=== PATIENT | male | born 1940 | race Caucasian/White ===

== ENCOUNTER 2023-04-12 14:05 | Emergency (ER) | payer MEDICARE, BC ==
[2023-04-12 14:23] VITALS: BP 139/64; O2SAT 100
--- NOTE | 2023-04-12 16:17 | ED Physician Documentation ---
History of Present Illness - Stated complaint Stated Complaint: GI,BACK PX - Chief complaint Chief Complaint: Abd Pain - History obtained from History obtained from: Patient, Family - History of Present Illness Pain level max: 0 Pain level now: 0 - Additonal information Additional information: 82-year-old male states that he suffered a compression fracture earlier this month and has been on oxycodone. He states he has had constipation for the past several days. No abdominal pain, no nausea, no vomiting. No fevers. No chills. Did take a dose of MiraLAX but did not feel that it helped. Patient has no other complaints at this time. Patient states that he has been tapering off his oxycodone to help with the constipation. Review of Systems Constitutional: denies: Fever, Chills GI: denies: Vomiting, Diarrhea, Hematemesis, Bloody / black stool Skin: denies: Rash Musculoskeletal: denies: Neck pain, Back pain PD PAST MEDICAL HISTORY - Past Medical History Past Medical History: Yes - Past Surgical History Past Surgical History: Yes - Allergies Allergies/Adverse Reactions: Allergies Allergy/AdvReac Type Severity Reaction Status Date / Time Sulfa (Sulfonamide Allergy Unknown Verified 04/12/23 14:13 Antibiotics) - Social History Does the pt smoke?: No Smoking Status: Never smoker Does the pt drink ETOH?: No Does the pt have substance abuse?: No - Immunizations Immunizations are current?: Yes PD ED PE NORMAL - Vitals Vital signs reviewed: Yes - General General: Alert and oriented X 3, No acute distress - HEENT HEENT: PERRL, Moist mucous membranes - Neck Neck: Supple, no meningeal sign - Cardiac Cardiac: RRR, Strong equal pulses - Respiratory Respiratory: No respiratory distress, Clear bilaterally - Abdomen Abdomen: Normal bowel sounds, Soft, Non tender, Non distended - Back Back: No spinal TTP - Derm Derm: Warm and dry - Neuro Neuro: Alert and oriented X 3 - Psych Psych: Normal mood, Normal affect Results - Vitals Vitals: Vital Signs - 24 hr 04/12/23 14:13 Temperature 36.8 C Heart Rate 88 Respiratory 16 Rate Blood Pressure 139/64 H O2 Saturation 100 Oxygen O2 Source Room air PD Medical Decision Making - ED course Complexity details: considered differential, d/w patient, d/w family ED course: Upon arrival to the emergency department the patient had a large bowel movement. He states that he still has no abdominal pain, no vomiting and no other complaints. Will have him follow-up with his doctor for further care. Continue to increase his water intake at home and continue the MiraLAX daily while on oxycodone. Patient and family counseled regarding signs and symptoms for which I believe and urgent re-evaluation would be necessary. Patient with good understanding of and agreement to plan and is comfortable going home at this time This document was made in part using voice recognition software. While efforts are made to proofread this document, sound alike and grammatical errors may occur. Departure - Departure Disposition: Home, Self Care Clinical Impression: Constipation Qualifiers: Constipation type: unspecified constipation type Qualified Code(s): K59.00 - Constipation, unspecified Condition: Good Instructions: ED Constipation Follow-Up: your,doctor as needed [Other] Comments: As a discussed you need to take the MiraLAX and make sure you are drinking lots of water throughout the day as this will help the MiraLAX worked better. As you come off the oxycodone your constipation will improve. Please follow-up with your doctor as needed for further care. Return if you worsen. Forms: PCP List Discharge Date/Time: 04/12/23 16:22
== END 2023-04-12 16:22 | disposition home or self-care (01) ==
LOC: ED 14:05
DX: K59.00 Constipation, unspecified (principal)
CPT/HCPCS: 99281; 99283

== ENCOUNTER 2023-04-21 17:33 | Emergency (ER) | payer MEDICARE, BC ==
[2023-04-21 17:47] VITALS: BP 160/80; O2SAT 100
== END 2023-04-21 18:05 | disposition left against medical advice (07) ==
LOC: ED 17:33
DX: Z53.21 Procedure and treatment not carried out due to patient leaving prior to being seen by health care provider (principal)

== ENCOUNTER 2023-04-21 19:07 | Outpatient (CLI) | payer MEDICARE, BC | END 2023-04-21 19:08 | disposition critical access hospital (66) | LOC: EMS 19:07 | DX: R06.02 Shortness of breath (principal); R42 Dizziness and giddiness; I45.10 Unspecified right bundle-branch block | CPT/HCPCS: A0425; A0429; A0888 ==